=== PATIENT | female | born 1990 ===

== ENCOUNTER 2017-02-27 07:00 | Emergency (ER) | payer OTHER ==
[2017-02-27 08:17] LABS: URINE BACTERIA FEW (<OCC); URINE BILIRUBIN NEGATIVE (NEGATIVE); URINE BLOOD 3+ (NEGATIVE); URINE COLOR Red (YELLOW); URINE GLUCOSE (UA) NORMAL (Normal); URINE KETONE NEGATIVE (NEGATIVE); URINE LEUKOCYTE ESTERASE 3+ Leu/uL (Negative); URINE PROTEIN 2+ mg/dL (NEGATIVE); URINE UROBILINOGEN NORMAL mg/dL (0.2-1.0); WBC URINE 24 /hpf (0-5)
[2017-02-27 08:19] LABS: RBC URINE 40 /hpf (0-3)
--- NOTE | 2017-02-27 09:12 | C.PDOC ---
History Of Present Illness 26-year-old female, presents to the emergency department with complaints of 2- day duration of dysuria, urinary frequency and hematuria. Pt has a Hx of UTI many years ago. Denies nausea, vomiting, fevers, abdominal pain, flank pain, or any other associated symptoms. No other complaints at this time. Time Seen by Provider: 02/27/17 07:41 Chief Complaint (Nursing): Female Genitourinary History Per: Patient History/Exam Limitations: no limitations Onset/Duration Of Symptoms: Days Current Symptoms Are (Timing): Still Present Severity: Moderate Past Medical History Reviewed: Historical Data, Nursing Documentation, Vital Signs Vital Signs: Last Vital Signs Temp 98.8 F 02/27/17 09:51 Pulse 71 02/27/17 09:51 Resp 18 02/27/17 09:51 BP 106/70 02/27/17 09:51 Pulse Ox 100 02/27/17 10:34 Family History: States: Unknown Family Hx - Social History Hx Alcohol Use: No Hx Substance Use: No - Immunization History Hx Tetanus Toxoid Vaccination: No Hx Influenza Vaccination: No Hx Pneumococcal Vaccination: No Review Of Systems Except As Marked, All Systems Reviewed And Found Negative. Constitutional: Negative for: Fever, Chills Respiratory: Negative for: Cough, Shortness of Breath Gastrointestinal: Negative for: Nausea, Vomiting, Abdominal Pain Genitourinary: Positive for: Dysuria, Frequency, Hematuria. Negative for: Rash Musculoskeletal: Negative for: Back Pain Skin: Negative for: Rash Neurological: Negative for: Weakness, Numbness Physical Exam - Physical Exam Appears: Non-toxic, No Acute Distress Skin: Normal Color, Warm, Dry, No Rash Head: Atraumatic, Normacephalic Eye(s): bilateral: Normal Inspection, PERRL Nose: Normal Oral Mucosa: Moist Lips: Normal Appearing Neck: Normal ROM Cardiovascular: Rhythm Regular Respiratory: Normal Breath Sounds, No Accessory Muscle Use Gastrointestinal/Abdominal: Soft, No Tenderness, No Guarding, No Rebound Extremity: Normal ROM Neurological/Psych: Oriented x3, Normal Speech ED Course And Treatment O2 Sat by Pulse Oximetry: 100 Progress Note: Macrobid, Pyridium and Urine Culture ordered Disposition - Disposition Referrals: Jinny Bell MD [Medical Doctor] - Disposition: HOME/ ROUTINE Disposition Time: 09:20 Condition: STABLE Additional Instructions: Follow up with PMD within 1-2 days. Return to ED if feel worse. Prescriptions: Nitrofurantoin Macrocrystals [Macrobid] 1 cap PO BID #14 cap Phenazopyridine [Pyridium] 200 mg PO TID #15 tab Instructions: Urinary Tract Infection in Women (ED) - Clinical Impression Clinical Impression: Urinary tract infection - Scribe Statement The provider has reviewed the documentation as recorded by the Valdez Esposito All medical record entries made by the Valdez were at my direction and personally dictated by me. I have reviewed the chart and agree that the record accurately reflects my personal performance of the history, physical exam, medical decision making, and the department course for this patient. I have also personally directed, reviewed, and agree with the discharge instructions and disposition.
[2017-02-27 09:54] VITALS: BP 106/70; PULSE 71; RESP 18; TEMP 98.8
[2017-02-27 10:34] VITALS: O2SAT 100
== END 2017-02-27 09:53 | disposition home or self-care (01) ==
LOC: C.ER 07:00
DX: N39.0 Urinary tract infection, site not specified (principal); B96.89 Other specified bacterial agents as the cause of diseases classified elsewhere; R31.9 Hematuria, unspecified